=== PATIENT | female | born 1945 | race Caucasian/White ===

== ENCOUNTER 2020-12-12 12:17 | Emergency (ER) | payer MEDICARE, OTHER, SELFPAY ==
--- NOTE | ~2020-12-12 | XR_ITS ---
EXAMINATION: XR CHEST CLINICAL INFORMATION: Cough is no and weakness. COMPARISON: None TECHNIQUE: 2 views of the chest were obtained. FINDINGS: The lungs are well-expanded and clear. The heart size and pulmonary vasculature is normal. There is mild dextro scoliosis dorsal spine. No lytic process. XR/XR chest 2V IMPRESSION: Unremarkable chest exam.
[2020-12-12 12:54] VITALS: BP 122/56; PULSE 66; RESP 18; TEMP 36.6; O2SAT 99; BMI 20.9
--- NOTE | 2020-12-12 15:08 | ECG_ITS ---
Test Reason : WEAKNESS Blood Pressure : / mmHG Vent. Rate : 062 BPM Atrial Rate : 062 BPM P-R Int : 200 ms QRS Dur : 100 ms QT Int : 424 ms P-R-T Axes : 055 -26 054 degrees QTc Int : 430 ms Normal sinus rhythm Incomplete right bundle branch block Borderline ECG When compared with ECG of 22-MAY-2009 11:18, No significant change was found Referred By: Comfort Zamora Electronically Signed By:ADAM AGUIRRE MD
--- NOTE | 2020-12-12 15:24 | ED.WEAKNESS ---
HPI - Weakness General Chief complaint: Weakness Stated complaint: weakness Time Seen by Provider: 12/12/20 14:54 Source: patient and family Mode of arrival: ambulatory Limitations: no limitations History of Present Illness HPI Narrative: 75-year-old female previously healthy here with complaints of generalized weakness for the last few weeks. Had labs done outpatient by her primary care doctor which showed anemia. Patient started on iron supplement 2 weeks ago. Continued symptoms. No black or bloody stools. No abdominal pain, nausea, vomiting. No hematemesis. No hematuria. She does have a mild cold which she describes as coughing congestion with no fevers, chills, chest pain or shortness of breath. She is fully vaccinated with COVID. Last colonoscopy done at [facility] 1 year ago and reportedly normal. Related Data Allergies Allergy/AdvReac Type Severity Reaction Status Date / Time bee pollen [bee stings] Allergy Swelling Verified 12/12/20 12:57 codeine Allergy Unknown Verified 12/12/20 12:57 Sulfa (Sulfonamide Allergy Unknown Verified 12/12/20 12:57 Antibiotics) Review of Systems Review of Systems: Yes all other systems are reviewed and are negative Constitutional: Constitutional: Reports no additional constitutional complaints, Denies body ache(s), Denies chills, Denies fever(s), Denies headache(s) and Reports weakness Eyes: Eyes: Reports no additional eye complaints and Denies change in vision ENT: Reports system reviewed and no additional complaints, except as documented, Denies dizziness, Denies headache(s), Denies nasal congestion, Denies nasal discharge and Denies neck pain Cardiovascular: Cardiovascular: Reports no additional cardiovascular complaints, Denies chest pain, Denies leg edema and Denies dyspnea Respiratory: Respiratory: Reports no additional respiratory complaints, Denies cough and Denies dyspnea Gastrointestinal: Gastrointestinal: Reports no additional gastrointestinal complaints, Denies abdominal pain, Denies diarrhea, Denies nausea and Denies vomiting Genitourinary: Genitourinary: Reports no additional female genitourinary complaints and Denies urinary incontinence Musculoskeletal: Musculoskeletal: Reports no additional musculoskeletal complaints, Denies back pain, Denies arthralgias, Denies joint swelling, Denies neck pain, Denies numbness and Denies tingling Integumentary/Breasts: Skin/Breast: Reports system reviewed and no additional complaints, except as docu and Denies rash Neurologic: Reports system reviewed and no additional complaints, except as documented, Denies Abnormal speech present, Denies dizziness, Denies headache(s), Denies numbness, Denies tingling and Reports weakness PMFSH Past Medical History Attestation statement: The following information was validated with the patient. Source: old records reviewed and nursing notes reviewed Medical History Anemia Social History Social History Advance Directives: No Advance Directives Information Provided: No Physical Exam Vital Signs: Vital Signs: Last Vital Signs Temp 97.8 F 12/12/20 12:54 Pulse 66 12/12/20 12:54 Resp 18 12/12/20 12:54 BP 122/56 L 12/12/20 12:54 Pulse Ox 99 12/12/20 12:54 Body Mass Index 20.9 Const: General: cooperative, healthy appearing, comfortable and no acute distress Orientation/consciousness: patient oriented x3 Limitations: no limitations HENMT: Head: Yes normal to inspection Ears: hearing grossly normal bilaterally General nose exam: Normal external nose present Face and sinus: Yes normal facial exam Mouth: Normal oral and palatal mucosa present Throat: Yes posterior oropharynx normal Eyes: General: appearance normal, both eyes and all related structures Pupils: Equal, round and reactive pupils present Neck: Neck: Yes normal visual inspection Chest: Chest palpation & inspection: normal inspection of the chest Resp: Effort & Inspection: normal respiratory effort Auscultation: clear to auscultation bilaterally Cardio: Rate: regular rate Rhythm: regular rhythm Peripheral pulses: Peripheral pulses 2+ throughout GI: Other: Rectal exam shows brown stool Inspection: Yes normal to inspection Palpation (GI): Soft to palpation and nontender Auscultation: normal bowel sounds Back/Spine/Pelvis: Thoracic/Lumbar Spine: thoracic and lumbar spine normal to inspection Skin: General skin exam: no rashes or lesions noted Neuro: General: patient oriented x3, no focal motor deficits and normal sensation to monofilament Cranial nerves: Yes Equal, round and reactive pupils present Cognition (Neuro): normal cognition Speech: No Abnormal speech present Gait exam (Neuro): Normal gait present Motor exam (neuro): 5/5 motor strength present throughout Extrem: General: Yes normal to inspection Course Course Course Narrative: 75-year-old female here with generalized weakness for several weeks. No specific complaints. Does have a mild cold which she describes as chest congestion and cough. Had outpatient labs several weeks ago which showed anemia per patient. None available for review. She started iron tablets with continued symptoms. Exam is benign. Brown stool on exam. Will send labs, EKG, chest x-ray, COVID screen, UA. 1830-labs show mild microcytic anemia likely iron deficiency. No need for transfusion at this time. All other labs are unremarkable. Chest x-ray shows no acute finding. EKG shows no ischemic changes. UA is negative. Discussed findings with the patient. She was provided with a copy of her labs. She will follow up outpatient with her primary care doctor. Recommended continuing iron supplements. Reviewed worrisome signs and symptoms of when to return to the emergency department. Comfortable discharge home. MDM - Weakness Differential Diagnosis Differential diagnosis: Likely UTI, anemia, hypoglycemia, hypothyroidism, rhabdomyolysis, sepsis and dehydration Medical Records Attestation: I reviewed the patient's medical records. Lab Data Attestation: I reviewed the patient's lab results. Result diagrams: 12/12/20 15:52 12/12/20 15:52 Labs: Lab Results 12/12/20 12/12/20 12/12/20 Range/Units 15:52 15:52 15:52 WBC 7.2 (4.8-10.8) X10*3/uL RBC 4.56 (4.20-5.50) X10*6/uL Hgb 10.7 L (12.0-16.0) g/dl Hct 35.0 L (37-47) % MCV 76.8 L (80-98) fL MCH 23.5 L (27.0-33.0) pg MCHC 30.6 L (31.0-35.0) g/dl RDW 21.1 H (11.0-16.0) % Plt Count 319 (160-400) X10*3/uL MPV 10.1 (9.4-12.3) fL Immature Gran % (Auto) 0.4 (0.0-0.4) % Neut % (Auto) 58.1 (45-73) % Lymph % (Auto) 30.7 (20-40) % [place] % (Auto) 8.0 (2-11) % Eos % (Auto) 2.4 (0-4) % Baso % (Auto) 0.4 (0-2) % Lymph # (Auto) 2.2 (1.2-4.9) X10*3/uL [place] # (Auto) 0.6 (0.1-1.2) X10*3/uL Eos # (Auto) 0.2 (0.0-0.4) X10*3/uL Baso # (Auto) 0.0 (0.0-0.2) X10*3/uL Abs Immat Gran (auto) 0.03 (0.00-0.03) X10*3/uL Absolute Neuts (auto) 4.2 (2.0-8.3) X10*3/uL Absolute Nucleated RBC 0.000 (0.0-0.012) X10*3/uL Nucleated RBC % (auto) 0.0 (0.0-0.2) /100WBC Sodium 142 (135-145) mmol/L Potassium 4.6 (3.3-5.1) mmol/L Chloride 106 (96-108) mmol/L Carbon Dioxide 28 (22-29) mmol/L Anion Gap 13 (12-20) BUN 9 (9-16) mg/dL Creatinine 0.65 (0.5-1.4) mg/dL Estim Creat Clear Calc 54.7 Estimated GFR > 60 Random Glucose 94 (60-115) mg/dL Calcium 9.4 (8.4-10.2) mg/dL Magnesium 2.1 (1.6-2.6) mg/dL Total Bilirubin 0.4 (0.0-1.0) mg/dL Direct Bilirubin 0.2 (0.0-0.5) mg/dL AST 16 (5-31) U/L ALT 12 (0-31) U/L Alkaline Phosphatase 71 (39-117) U/L Total Protein 6.8 (6.5-8.0) g/dL Albumin 4.1 (3.5-5.0) g/dL Urine Color Urine Appearance Urine pH (5.0-8.0) Ur Specific [place] (1.005-1.025) Urine Protein (NEG-TRACE) MG/DL Urine Glucose (UA) (NEG) MG/DL Urine Ketones (NEG) MG/DL Urine Blood (NEG) Urine Nitrite (NEG) Ur Leukocyte Esterase (NEG) Stool Occult Blood NEGATIVE (NEGATIVE) COVID-19 (LUCERO) (Negative) COVID-19 Clin Com 12/12/20 12/12/20 Range/Units 17:21 17:21 WBC (4.8-10.8) X10*3/uL RBC (4.20-5.50) X10*6/uL Hgb (12.0-16.0) g/dl Hct (37-47) % MCV (80-98) fL MCH (27.0-33.0) pg MCHC (31.0-35.0) g/dl RDW (11.0-16.0) % Plt Count (160-400) X10*3/uL MPV (9.4-12.3) fL Immature Gran % (Auto) (0.0-0.4) % Neut % (Auto) (45-73) % Lymph % (Auto) (20-40) % [place] % (Auto) (2-11) % Eos % (Auto) (0-4) % Baso % (Auto) (0-2) % Lymph # (Auto) (1.2-4.9) X10*3/uL [place] # (Auto) (0.1-1.2) X10*3/uL Eos # (Auto) (0.0-0.4) X10*3/uL Baso # (Auto) (0.0-0.2) X10*3/uL Abs Immat Gran (auto) (0.00-0.03) X10*3/uL Absolute Neuts (auto) (2.0-8.3) X10*3/uL Absolute Nucleated RBC (0.0-0.012) X10*3/uL Nucleated RBC % (auto) (0.0-0.2) /100WBC Sodium (135-145) mmol/L Potassium (3.3-5.1) mmol/L Chloride (96-108) mmol/L Carbon Dioxide (22-29) mmol/L Anion Gap (12-20) BUN (9-16) mg/dL Creatinine (0.5-1.4) mg/dL Estim Creat Clear Calc Estimated GFR Random Glucose (60-115) mg/dL Calcium (8.4-10.2) mg/dL Magnesium (1.6-2.6) mg/dL Total Bilirubin (0.0-1.0) mg/dL Direct Bilirubin (0.0-0.5) mg/dL AST (5-31) U/L ALT (0-31) U/L Alkaline Phosphatase (39-117) U/L Total Protein (6.5-8.0) g/dL Albumin (3.5-5.0) g/dL Urine Color YELLOW Urine Appearance HAZY Urine pH 6.0 (5.0-8.0) Ur Specific [place] 1.010 (1.005-1.025) Urine Protein NEG (NEG-TRACE) MG/DL Urine Glucose (UA) NEG (NEG) MG/DL Urine Ketones NEG (NEG) MG/DL Urine Blood NEG (NEG) Urine Nitrite NEG (NEG) Ur Leukocyte Esterase NEG (NEG) Stool Occult Blood (NEGATIVE) COVID-19 (LUCERO) Negative (Negative) COVID-19 Clin Com See Note Imaging Data Chest x-ray: Attestation: I personally reviewed and interpreted this imaging study as follows: Radiologist's impression: [address] [address] XRay Report Signed Patient: Carli Walker MR#: [id number] : 1945 Acct:[id number] Age/Sex: 75 / F ADM Date: 12/12/20 Loc: .ED Attending Dr: Ordering Physician: JESSA WHITE NP Date of Service: 12/12/20 Procedure(s): XR chest 2V Accession Number(s): [id number] cc: JESSA WHITE NP~ EXAMINATION: XR CHEST CLINICAL INFORMATION: Cough is no and weakness. COMPARISON: None TECHNIQUE: 2 views of the chest were obtained. FINDINGS: The lungs are well-expanded and clear. The heart size and pulmonary vasculature is normal. There is mild dextro scoliosis dorsal spine. No lytic process. XR/XR chest 2V IMPRESSION: Unremarkable chest exam. ECG Data Attestation: I personally reviewed and interpreted this ECG as follows: ECG interpretation date: 12/12/20 ECG interpretation time: 15:36 Interpretation: Normal sinus rhythm rate of 62, normal NC, normal QRS, normal QT Discharge Plan Discharge Clinical Impression: Weakness, Anemia, iron deficiency Patient Disposition: Home, Self-Care Instructions: Iron Deficiency Anemia (ED), Weakness (ED) Additional Instructions: Continue iron tablets Follow-up with her primary care doctor Referrals: Nils Mcghee MD [Primary Care Provider] - 2 days Interventions: ED Discharge Assessment Last Done: 12/12/20 18:12 Discharge Date/Time: 12/12/20 18:13
[2020-12-12 16:04] LABS: MANUAL DIFF FLAG NO
[2020-12-12 16:05] LABS: OBS Int Ctl Valid YES; OBS1 NEGATIVE (NEGATIVE)
[2020-12-12 16:08] LABS: Basophils Percent Auto 0.4 % (0-2); Eosinophils Absolute Auto 0.2 X10*3/uL (0.0-0.4); Eosinophils Percent Auto 2.4 % (0-4); Hemoglobin 10.7 g/dl (12.0-16.0); Imm Gran Abs Auto 0.03 X10*3/uL (0.00-0.03); Imm Gran Pct Auto 0.4 % (0.0-0.4); Lymphocytes Absolute Auto 2.2 X10*3/uL (1.2-4.9); Lymphocytes Percent Auto 30.7 % (20-40); Mean Corpuscular HGB Conc 30.6 g/dl (31.0-35.0); Mean Corpuscular Hemoglobin 23.5 pg (27.0-33.0); Mean Corpuscular Volume 76.8 fL (80-98); Mean Platelet Volume 10.1 fL (9.4-12.3); Monocytes Absolute Auto 0.6 X10*3/uL (0.1-1.2); Neutrophils Absolute Auto 4.2 X10*3/uL (2.0-8.3); Neutrophils Percent Auto 58.1 % (45-73); Platelet Count 319 X10*3/uL (160-400); Red Blood Count 4.56 X10*6/uL (4.20-5.50); Red Cell Distribution Width 21.1 % (11.0-16.0); White Blood Count 7.2 X10*3/uL (4.8-10.8)
[2020-12-12 16:26] LABS: Alanine Aminotransferase 12 U/L (0-31); Albumin Level 4.1 g/dL (3.5-5.0); Alkaline Phosphatase 71 U/L (39-117); Anion Gap 13 (12-20); Aspartate Amino Transferase 16 U/L (5-31); Bilirubin Direct 0.2 mg/dL (0.0-0.5); Bilirubin Total 0.4 mg/dL (0.0-1.0); Blood Urea Nitrogen 9 mg/dL (9-16); Calcium 9.4 mg/dL (8.4-10.2); Carbon Dioxide 28 mmol/L (22-29); Chloride 106 mmol/L (96-108); Creatinine Clr Calc Pharmacy 54.7; Estimated Glomerular Filt Rate > 60; Glucose Random 94 mg/dL (60-115); Magnesium 2.1 mg/dL (1.6-2.6); Potassium 4.6 mmol/L (3.3-5.1); Sodium 142 mmol/L (135-145); Total Protein 6.8 g/dL (6.5-8.0)
[2020-12-12 17:43] LABS: Glucose Urine UA NEG (NEG); Leukocyte Esterase Urine NEG (NEG); Nitrite Urine NEG (NEG); Urine Blood NEG (NEG); Urine Ketones NEG (NEG); Urine Protein NEG (NEG-TRACE)
[2020-12-12 17:45] LABS: Appearance Urine HAZY; Color Urine YELLOW
[2020-12-12 17:49] LABS: COVID-19 Test Negative (Negative)
== END 2020-12-12 18:13 | disposition home or self-care (01) ==
PROVIDERS: Nurse Practitioner Family; Emergency Provider Emergency Medicine; PCP Internal Medicine
DX: D50.9 Iron deficiency anemia, unspecified (principal); R53.1 Weakness; Z20.822 Contact with and (suspected) exposure to COVID-19
CPT/HCPCS: 36415; 71046; 80048; 80076; 81003; 82272; 83735; 85025; 87635; 93005; 99283

== ENCOUNTER 2023-08-06 07:55 | Emergency (ER) | payer MEDICARE, OTHER, SELFPAY ==
--- NOTE | ~2023-08-06 | XR_ITS ---
EXAMINATION: XR ABDOMEN KUB CLINICAL INDICATION: Right lower quadrant pain, question constipation. COMPARISON: None available. TECHNIQUE: AP view of the abdomen. FINDINGS: Solid visceral outlines are obscured. Moderate fecal retention. Left hemipelvic, possibly phleboliths, possibly retained colonic contrast in diverticulum. Mildly elevated right hemidiaphragm. Demineralization, degenerative changes and scoliosis. XR/XR KUB IMPRESSION: Moderate fecal retention.
[2023-08-06 08:18] VITALS: BP 160/97; PULSE 70; RESP 18; TEMP 36.5; O2SAT 98; BMI 22.5
[2023-08-06 09:25] LABS: MANUAL DIFF FLAG NO
[2023-08-06 09:35] LABS: Basophils Percent Auto 0.7 % (0-2); Eosinophils Absolute Auto 0.1 X10*3/uL (0.0-0.4); Hematocrit 42.6 % (37.0-47.0); Hemoglobin 13.9 g/dl (12.0-16.0); Imm Gran Abs Auto 0.03 X10*3/uL (0.00-0.03); Imm Gran Pct Auto 0.5 % (0.0-0.4); Lymphocytes Absolute Auto 1.2 X10*3/uL (1.2-4.9); Lymphocytes Percent Auto 20.6 % (20-40); Mean Corpuscular HGB Conc 32.6 g/dl (31.0-35.0); Mean Corpuscular Hemoglobin 31.1 pg (27.0-33.0); Mean Corpuscular Volume 95.3 fL (80.0-98.0); Mean Platelet Volume 9.3 fL (9.4-12.3); Monocytes Absolute Auto 0.5 X10*3/uL (0.1-1.2); Monocytes Percent Auto 7.6 % (2-11); Neutrophils Absolute Auto 4.1 x10*3/uL (2.0-8.3); Neutrophils Percent Auto 68.6 % (45-73); Platelet Count 228 X10*3/uL (160-400); Red Blood Count 4.47 X10*6/uL (4.20-5.50); Red Cell Distribution Width 12.6 % (11.0-16.0)
[2023-08-06 09:39] LABS: Appearance Urine Clear; Color Urine Yellow; Glucose Urine UA Negative (Negative); Leukocyte Esterase Urine Negative (Negative); Nitrite Urine Negative (Negative); PH 8.5 (5.0-9.0); Specific Gravity - Urine <= 1.005 (1.005-1.025); Urine Blood Negative (Negative); Urine Ketones Negative (Negative); Urine Protein Negative (Neg-Trace)
--- NOTE | 2023-08-06 09:42 | ED.GENADULT ---
HPI - General Adult General Chief complaint: Abdominal Pain Stated complaint: Yuliana Bell Pain Time Seen by Provider: 08/06/23 09:30 History of Present Illness HPI narrative: The patient is an 78-year-old woman who has been having problems with pain in her right groin for the last 7 weeks. She has been been seen at her regular doctor's office and there has been a presumptive diagnosis of possible constipation. The patient has increased laxatives at home. The patient says she has a history of problems with constipation. She also has a history of an appendectomy. She also has a history of a right inguinal hernia repair. The patient says that she notices the pain most in the mornings and that it gets better throughout the day in his usually considerably better by the evening. She has seen her PCP about this pain. Her PCP ordered a CT of her abdomen and pelvis that was done at [facility] 1-2 weeks ago. According to the patient the CT showed ?a blockage and she was encouraged to increase her bowel regimen. She had a bowel movement yesterday. She also saw her primary care doctor yesterday. Despite these events the patient's pain was worse this morning and she came to the emergency room. No fever, sweats, chills. No nausea or vomiting. Related Data Allergies Allergy/AdvReac Type Severity Reaction Status Date / Time bee pollen [bee stings] Allergy Swelling Verified 12/12/20 12:57 codeine Allergy Unknown Verified 12/12/20 12:57 Sulfa (Sulfonamide Allergy Unknown Verified 12/12/20 12:57 Antibiotics) tramadol Allergy Nausea Verified 08/06/23 08:21 Review of Systems Review of Systems: Yes all other systems are reviewed and are negative [facility] Past Medical History Medical History Anemia Social History Social History Advance Directives: Yes Advance Directives Information Provided: Yes Advance Directives on File: No Physical Exam ED Vital Signs: Vital Signs - 24 hr 08/06/23 08:18 08/06/23 11:50 08/06/23 11:53 Temperature 97.7 F 97.5 F 97.5 F Pulse Rate 70 66 64 Respiratory Rate 18 18 16 Blood Pressure 160/97 H 133/53 L 133/53 L Pulse Oximetry 98 97 96 Oxygen Delivery Method Room Air Room Air Room Air BMI result Body Mass Index 22.5 Const Other: The patient is a healthy-looking 6-year-old who was awake and alert and who does not seem acutely ill. HENMT Other: The appearance of the head and face are unremarkable. Mucous membranes moist. Eyes Other: Pupils are round and equal. No scleral icterus. Neck Neck: Yes no JVD Resp Effort & Inspection: normal respiratory effort Auscultation: clear to auscultation bilaterally Cardio Rate: regular rate Rhythm: regular rhythm Heart sounds: S1 normal heart sound present and S2 normal heart sound present GI Other: The abdomen is flat and soft. There is some mild right lower quadrant tenderness. There is no palpable hernia in the right inguinal region. Skin Other: Skin is dry and unremarkable Neuro Other: The patient is awake, alert, pleasant, nontoxic. Cranial nerves are grossly intact. She moves all extremities normally and easily. Extrem Other: No deformities to the extremities. I can put the right hip through an excellent range of motion without apparent discomfort. Medical Decision Making Medical Decision Making [facility] Narrative: The patient is an 78-year-old woman who has been experiencing pain in her right groin intermittently for the last 7 weeks. She had a CT scan at [facility] 1 month ago because of this pain. The CT scan was fairly unremarkable. I was able to obtain records from [facility]. The impression of the CT reads ?sigmoid colonic diverticulosis and mild fecal retention. No CT evidence of acute diverticulitis or acute intra-abdominal process. Moderate sliding type hiatal hernia. Clinically the patient's description of her pain syndrome does not sound highly suggestive of an intra-abdominal source of pain. I think it is unlikely that this pain syndrome represents a problem with constipation. Seems more likely the pain would be musculoskeletal although it was not entirely reproducible with manipulation of the right hip. The patient was observed in the emergency department. Her pain resolved while in the emergency department. I think she may be discharged follow up with the regular doctor to discuss this further. Lab Data 08/06/23 09:18 08/06/23 09:18 Labs: Lab Results 08/06/23 08/06/23 Range/Units 09:18 09:34 WBC 6.0 (4.8-10.8) X10*3/uL RBC 4.47 (4.20-5.50) X10*6/uL Hgb 13.9 (12.0-16.0) g/dl Hct 42.6 (37.0-47.0) % MCV 95.3 (80.0-98.0) fL MCH 31.1 (27.0-33.0) pg MCHC 32.6 (31.0-35.0) g/dl RDW 12.6 (11.0-16.0) % Plt Count 228 (160-400) X10*3/uL MPV 9.3 L (9.4-12.3) fL Immature Gran % (Auto) 0.5 H (0.0-0.4) % Neut % (Auto) 68.6 (45-73) % Lymph % (Auto) 20.6 (20-40) % [place] % (Auto) 7.6 (2-11) % Eos % (Auto) 2.0 (0-4) % Baso % (Auto) 0.7 (0-2) % Lymph # (Auto) 1.2 (1.2-4.9) X10*3/uL [place] # (Auto) 0.5 (0.1-1.2) X10*3/uL Eos # (Auto) 0.1 (0.0-0.4) X10*3/uL Baso # (Auto) 0.0 (0.0-0.2) X10*3/uL Abs Immat Gran (auto) 0.03 (0.00-0.03) X10*3/uL Absolute Neuts (auto) 4.1 (2.0-8.3) x10*3/uL Absolute Nucleated RBC 0.000 (0.0-0.012) X10*3/uL Nucleated RBC % (auto) 0.0 (0.0-0.2) /100WBC Sodium 142 (135-145) mmol/L Potassium 4.1 (3.3-5.1) mmol/L Chloride 105 (96-108) mmol/L Carbon Dioxide 31 H (22-29) mmol/L Anion Gap 10 L (12-20) BUN 9 (9-16) mg/dL Creatinine 0.63 (0.5-1.4) mg/dL Estim Creat Clear Calc 51.1 Estimated GFR > 60 Random Glucose 97 (60-115) mg/dL Calcium 9.0 (8.4-10.2) mg/dL Total Bilirubin 0.4 (0.0-1.0) mg/dL AST 19 (5-31) U/L ALT 13 (0-31) U/L Alkaline Phosphatase 61 (39-117) U/L C-Reactive Protein 0.21 (< or = 0.50) mg/dL Total Protein 6.8 (6.5-8.0) g/dL Albumin 4.0 (3.5-5.0) g/dL Urine Color Yellow Urine Appearance Clear Urine pH 8.5 (5.0-9.0) Ur Specific [place] <= 1.005 (1.005-1.025) Urine Protein Negative (Neg-Trace) mg/dL Urine Glucose (UA) Negative (Negative) mg/dL Urine Ketones Negative (Negative) mg/dL Urine Blood Negative (Negative) Urine Nitrite Negative (Negative) Ur Leukocyte Esterase Negative (Negative) Discharge Plan Discharge Clinical Impression: Right groin pain Patient Disposition: Home, Self-Care Additional Instructions: I am not convinced your pain is related to constipation. I think it is more likely related to a musculoskeletal problem. You may take acetaminophen (Tylenol )as needed for pain. Please follow-up soon with your regular doctor to discuss this further. Return to the emergency room if worse. Referrals: Nils Mcghee MD [Primary Care Provider] - (Right groin pain) Interventions: ED Discharge Assessment Last Done: 08/06/23 11:53 Discharge Date/Time: 08/06/23 11:54 Print Language: [place] Irish
[2023-08-06 09:43] LABS: Alanine Aminotransferase 13 U/L (0-31); Alkaline Phosphatase 61 U/L (39-117); Anion Gap 10 (12-20); Aspartate Amino Transferase 19 U/L (5-31); Bilirubin Total 0.4 mg/dL (0.0-1.0); Blood Urea Nitrogen 9 mg/dL (9-16); Carbon Dioxide 31 mmol/L (22-29); Chloride 105 mmol/L (96-108); Creatinine Clr Calc Pharmacy 51.1; Estimated Glomerular Filt Rate > 60; Glucose Random 97 mg/dL (60-115); Potassium 4.1 mmol/L (3.3-5.1); Sodium 142 mmol/L (135-145); Total Protein 6.8 g/dL (6.5-8.0)
[2023-08-06 10:06] LABS: C Reactive Protein 0.21 mg/dL (< or = 0.50)
[2023-08-06 11:50] VITALS: BP 133/53; PULSE 66; RESP 18; TEMP 36.4; O2SAT 97
[2023-08-06 11:53] VITALS: BP 133/53; PULSE 64; RESP 16; TEMP 36.4; O2SAT 96
== END 2023-08-06 11:54 | disposition home or self-care (01) ==
PROVIDERS: Emergency Provider Emergency Medicine; PCP Internal Medicine
DX: R10.31 Right lower quadrant pain (principal); Z88.5 Allergy status to narcotic agent
CPT/HCPCS: 36415; 74018; 80053; 81003; 85025; 86140; 99283

== ENCOUNTER 2025-02-14 13:34 | Outpatient (AMB) | payer MEDICARE, OTHER, SELFPAY ==
--- NOTE | 2025-02-14 13:41 | A.OFFVIS_ITS ---
Intake Visit Reasons: flank pain Intake Note: New Patient is present for flank pain Urology Rx: none Blood Thinners:none Imaging completed: CT done 11/27/24 Optical Effects Layout Person Required: No Accompanied by: Spouse Allergies bee pollen (bee stings) Allergy (Verified 02/14/25 13:42) Swelling codeine Allergy (Verified 02/14/25 13:42) Unknown Sulfa (Sulfonamide Antibiotics) Allergy (Verified 02/14/25 13:42) Unknown tramadol Allergy (Verified 02/14/25 13:42) Nausea HPI Comments Details: Carli is a pleasant female. She is a patient of Dr. Jewell. She is seen for the following conditions, - nephrolithiasis Question of nephrolithiasis Has been having back discomfort On exam has musculoskeletal pain Prior KUB with fecal loading Discussed increasing fluid and dietary fiber [facility] Medical History (Updated 05/01/25 @ 20:56 by Hao Ramsey MD) Diverticulitis Anemia Review of Systems Const Denies chills and Denies fever(s) Card Reports no additional complaints and Denies syncope Resp Denies cough GI Denies abdominal pain and Denies heartburn Reports as per HPI and Denies change in libido Neuro Denies syncope Psych Denies change in libido Endo Denies change in libido Physical Exam Const General: cooperative, healthy appearing, comfortable and no acute distress Orientation/consciousness: patient oriented x3 HEENT Face and sinus: Yes normal facial exam Mouth: moist mucous membranes Neck Neck: Yes normal visual inspection, Yes full ROM and Yes trachea midline Chest Chest palpation & inspection: normal inspection of the chest Resp Effort & Inspection: normal respiratory effort, able to speak in complete sentences and no respiratory distress GI Inspection: Yes normal to inspection Back/Spine/Pelvis Cervical Spine: normal cervical lordosis Thoracic/Lumbar Spine: thoracic and lumbar spine normal to inspection Skin General skin exam: no rashes or lesions noted Neuro General: patient oriented x3, gait normal, tone normal and moves all extremities Extrem General: Yes normal to inspection and Yes capillary refill normal Results AMB Urinalysis, Automated UA Leukoctes 0 Jori/uL Last Edit by CORKY Rasmussen on 02/14/25 14:15 UA Nitrite Negative Last Edit by CORKY Rasmussen on 02/14/25 14:15 UA Urobilinogen 0.2 mg/dL Last Edit by CORKY Rasmussen on 02/14/25 14:15 UA Protein 15 mg/dL Last Edit by Mendy Colon, CCMA on 02/14/25 14:15 UA pH 6.0 Last Edit by Mendy Colon, CCMA on 02/14/25 14:15 UA Blood 10 Nathaniel/uL Last Edit by Mendy Colon, CCMA on 02/14/25 14:15 UA Specific [place] 1.020 Last Edit by Mendy Colon, CCMA on 02/14/25 14:1 5 UA Ketone Negative Last Edit by Mendy Colon, CCMA on 02/14/25 14:15 UA Bilirubin 0 mg/dL Last Edit by Mendy Colon, CCMA on 02/14/25 14:15 UA Glucose 0 mg/dL Last Edit by Mendy Colon, CCMA on 02/14/25 14:15 Results Reviewed Results Reviewed: Laboratory Last Values Urine pH (Auto) 6.0 02/14/25 14:15 Specific [place] (Auto) 1.020 02/14/25 14:15 Urine Protein (Auto) 15 mg/dL 02/14/25 14:15 Glucose (UA)(Auto) 0 mg/dL 02/14/25 14:15 Urine Ketones (Auto) Negative 02/14/25 14:15 Urine Blood (Auto) 10 Nathaniel/uL 02/14/25 14:15 Urine Nitrite (Auto) Negative 02/14/25 14:15 Urine Bilirubin (Auto) 0 mg/dL 02/14/25 14:15 Urine Urobilinogen (Auto) 0.2 mg/dL 02/14/25 14:15 Leukocyte Esterase (Auto) 0 Jori/uL 02/14/25 14:15 Assessment & Plan Assessment & Plan (1) Flank pain: Code(s): R10.A0 - Flank pain, unspecified side Category: Medical Plan Flank pain is secondary to musculoskeletal. Not renal related. Patient Instructions: This note is constructed using voice recognition software. While every effort has been made to ensure accuracy client solutions manager errors may have been included. Imaging studies, laboratory and physical exam results were discussed and reviewed in detail. No major barriers to patient understanding were identified. An opportunity to ask questions regarding the treatment plan was provided. All questions were answered. The patient expressed understanding and agreement with the above treatment plan. The patient is aware they should contact our office by phone for worsening of their current condition or the appearance of new urologic symptoms. Compliance is encouraged with any medications and followup testing that is ordered. It is a privilege to participate in the urologic care of your patient. If you have any questions or concerns regarding treatment for the above conditions, or other urologic issues, please do not hesitate to contact me. The office telephone contact is [phone]. Sincerely, Dr Hao Ramsey MD, [facility] - Urology Compassionate Specialist Care for the Genitourinary System Coding Level of Care Code New Pt Level 3 (42978) Diagnoses Flank pain R10.A0
--- OUTSIDE RECORDS SUMMARY | 2025-02-14 17:22 | XMS_ITS | Data Portability ---
Author Organization [facility], PAIN OFFICE Address [address] [facility] [address] [place] [address] Care Team Providers Care Catering And Events Manager Name Role Phone KATHERIN DEMI Primary Care Provider [phone] Assessment Encounter Date Assessment Date Assessment LastModified by Organization Details LastModified Time 04/04/2015 04/04/2015 Carli Walker is a 69 year old woman with complaints of low back pain . On exam she has tenderness in the region of right L3-4 and L4-5 facet regions. MRI Lumbar spine shows multilevel facet hypertrophy with moderate hypertrophy at L3-4 level. Mild retrolisthesis at L1-2 and L2-3 levels is noted. Small focal left disc protrsuion at L5-S1 level . Multiple levels of mild lateral recess narrowing but no high grade central stenosis. Trial of Lumbar facet joint steroid injections at right L3-4 and L4-5 levels under fluoroscopic guidance was recommended. The risks and benefits of the procedure were discussed in detail. She wishes to proceed. An appointment has been booked for the same. She needs a medical driver on the day of the procedure. [email or web address] Not available 04/04/2015 15:47:31 04/08/2015 04/08/2015 Carli Walker is a 69 year old woman with complaints of low back pain . On exam she has tenderness in the region of right L3-4 and L4-5 facet regions. MRI Lumbar spine shows multilevel facet hypertrophy with moderate hypertrophy at L3-4 level. Mild retrolisthesis at L1-2 and L2-3 levels is noted. Small focal left disc protrsuion at L5-S1 level . Multiple levels of mild lateral recess narrowing but no high grade central stenosis. She is here for a trial of Right lumbar facet joint steroid injections at L3-4 and L4-5 levels under fluoroscopic guidance . The risks and benefits of the procedure were discussed in detail. She wishes to proceed. She will follow up in four weeks. [email or web address] Not available 04/08/2015 14:51:59 05/07/2015 05/07/2015 Carli Walker is a 69 year old woman with complaints of low back pain . She is here for a follow up after atrial of Right lumbar facet joint steroid injections at L3-4 and L4-5 levels under fluoroscopic guidance . She reports 75-80% pain relief which is ongoing. She has occasional pain onthe left side of her lumbar region. On exam she has mild tenderness in the region ofleft L3-4 and L4-5 facet regions. MRI Lumbar spine shows multilevel facet hypertrophy with moderate hypertrophy at L3-4 level. Mild retrolisthesis at L1-2 and L2-3 levels is noted. Small focal left disc protrsuion at L5-S1 level . Multiple levels of mild lateral recess narrowing but no high grade central stenosis. I have encouraged her to resume aquatic exercises at her local gym. If left sided low back pain increases in intensity , she can follow up for left facet joint steroid injection under fluoroscopic guidance. [email or web address] Not available 05/08/2015 15:55:00 Plan of Treatment Reminders Order Date Submit Date Provider Last Modified By Organization Details Last Modified Time Details Appointments None record ed. Lab None record ed. Referral None record ed. Procedures None record ed. Surgeries None record ed. Imaging None record ed. Medication Orders None record ed. Patient TargetsNo targets recorded. Patient Instructions Encounter Date Encounter Id Patient Instructions Last Modified By Organization Details Last Modified Time 04/04/2015 [id number] She was advised against bed rest lasting longer than four days and to continue activities as tolerated. [email or web address] Not available 04/04/2015 15:47:32 04/08/2015 [id number] She was advised against bed rest lasting longer than four days and to continue activities as tolerated. [email or web address] Not available 04/08/2015 14:49:01 05/07/2015 [id number] She was advised against bed rest lasting longer than four days and to continue activities as tolerated. [email or web address] Not available 05/07/2015 14:38:36 Reason for Referral None Reported. Problems Name Problem SNOMED Code Status Onset Date Resolution Date Notes Provider Name and Address Organization Details Recorded Time Displacement of lumbar intervertebral disc without myelopathy 20020206 Active Pee lucas MD [address] , [address], [place], [address], [place] [facility] 6 15:55:00 Lumbosacral spondylosis without myelopathy 79456005 Active Pee lucas MD [address] , [address], [place], [address], [place] [facility] 6 15:55:00 Muscle pain 50665863 Active Pee lucas MD [address] , [address], [facility] [place], [address], [place] [facility] 6 15:55:00 Problem Notes None recorded. Procedures Surgical History Date Name Laterality Status Provider Name and Address Organization Details Recorded Time 04/08/20 15 Fluoroscopic Guided Lumbar Facet Steroid Injections of levels completed Pee Celaya MD [address] , [address], [place], [address], [place] [facility] 04/08/2015 14:51:59 Arthroscopic Surgery completed Stephanie Cadena [place] [facility] 04/04/2015 13:50:58 Appendectomy completed Stephanie Cadena [place] [facility] 04/04/2015 13:50:58 Other completed Stephanie Cadena [place] [facility] 04/04/2015 13:50:58 Caesarean Section completed Stephanie Cadena [place] [facility] 04/04/2015 13:50:58 Imaging Results None recorded. Procedure Notes None recorded. Medical Equipment None Reported. Allergies Allergen ID Allergen Name Allergen Category Reaction Reaction Severity Criticality Documentation Date Start Date Code Code System Note Provider Name and Address Organization Details Recorded Time 51167 codeine medicatio n Not available Not available Not available 04/04/2015 2670 RxNorm Stephanie tom [place] [facility] 5 13:50:58 77148 Substance with sulfonami de structure and antibacte rial mechanism of action (substanc e) medicatio n nausea Not available Not available 04/04/2015 10854 8003 SNOMED Stephanie tom [place] [facility] 5 13:50:58 Medications Name Sig Start Date Stop Date Status Note LastModified by Organization Details LastModified Time prednisone 10 mg tabs active Not Available Not Available N ot Available levofloxacin 500 mg tabs active Not Available Not Available Not Available benzonatate 100 mg caps active Not Available Not Available Not Available cyclobenzapr ine hcl 5 mg tabs active Not Available Not Available Not Available azelastine hcl 0.1 % soln active Not Available Not Available Not Available doxycycline hyclate 100 mg caps active Not Available Not Available Not Available prednisone 10 mg tablet TAKE 4 TABLETS BY MOUTH ONCE DAILY FOR 2 DAYS, 3 TABS FOR 2 DAYS,... (REFER TO PRESCRIPTIO N NOTES). active Not Available Not Available No t Available doxycycline hyclate 100 mg capsule take 1 capsule by mouth twice a day for 10 days active Not Available Not Available No t Available aspirin 81 mg tablet,delay ed release Take 1 tablet every day by oral route. active Not Available Not Available No t Available benzonatate 100 mg capsule TAKE 1 CAP BY MOUTH 3 TIMES DAILY active Not Available Not Available Not Available azelastine 137 mcg (0.1 %) nasal spray INSTILL 2 SPRAYS INTO NOSTRIL(S) TWICE DAILY active Not Available Not Available Not Available levofloxacin 500 mg tablet TAKE 1 TABLET BY MOUTH EVERY 24 HOURS active Not Available Not Available No t Available Vitamin D3 25 mcg (1,000 unit) capsule Take by oral route. active Not Available Not Available Not Available cyclobenzapr ine 5 mg tablet take 1 tablet by mouth at bedtime active Not Available Not Available No t Available Fish Oil 2 tabs 1,000 daily active Not Available Not Available Not Available Vitamin B12 active Not Available Not A vailable Not Available Vitals Date Recorded Heart rate Oxygen saturation Oxygen saturation in Arterial blood by Pulse oximetry Systolic And Diastolic Provider Name and Address Organization Details Last Updated DateTime 05/07/2015 76 /min 98 % 98 % 113/55 mm[Hg] Stephanie Cadena [facility] 6 11:46:43 Date Recorded Body weight Oxygen saturation Oxygen saturation in Arterial blood by Pulse oximetry Body height Body mass index (BMI) Heart rate Systolic And Diastolic Provider Name and Address Organization Details Last Updated DateTime 5 92789.0 844 g 100 % 100 % 156.21 cm 22.3 kg/m2 66 /min 142/62 mm[Hg] Stephanie Cadena [facility] Pain Management 5 13:46:17 Date Recorded Oxygen saturation Oxygen saturation in Arterial blood by Pulse oximetry Heart rate Systolic And Diastolic Provider Name and Address Organization Details Last Updated DateTime 04/08/2015 98 % 98 % 67 /min 110/66 mm[Hg] Stephanie Carrascozier [facility] Pain Management 5 11:16:43 Social History Question Answer Notes LastModified by Organizat ion Details LastModified Time Tobacco Smoking Status Never [facility]oker Not [facility] 02/16/2020 03:16:12 Which Illicit Or Recreational Drugs Have You Used? No [id number] Information not available 02/16/2020 [email or web address] Information no t available 04/04/2015 Live Alone Or With Others? [email or web address] Information not available 04/04/2015 Marital Status [facility] Informatio n not available 04/04/2015 Sex: Unknown Functional Status Question Answer Note LastModified by Organizat ion Details LastModified Time What is your level of alcohol consumption? Occasional [id number] Information not available 02/16/2020 Are you currently employed? No [id number] Information not available 02/16/2020 Mental Status None recorded. Family History Nothing Reported. Medical History Condition Response GERD/Reflux Y Gynecological HistoryNo gynecological history recorded. Obstetrics History GPAL:G 0 P 0 0 0 0 Past Encounters Encounter ID Performer Location Encounter Start Date Encounter Closed Date Diagnosis/Indication Diagnosis SNOMED-CT Code Diagnosis ICD10 Code Diagnosis IMO Codes Diagnosis Note [id number] Pee Celaya MD PAIN OFFICE [address] [place] [address] 04/04/2015 13:17:07 04/04/2015 15:47:55 Lumbosacral spondylosis without myelopathy 64375719 M47.817 Displaceme nt of lumbar intervertebral disc without myelopathy 06355760 M51.26 Muscle pain 07213007 M79 .1 [id number] Pee Celaya MD PAIN OFFICE [address] [place] [address] 04/08/2015 10:53:19 04/08/2015 14:53:51 Lumbosacral spondylosis without myelopathy 46263268 M47.817 Muscle pain 71898641 M79 .1 Displaceme nt of lumbar intervertebral disc without myelopathy 05378423 M51.26 [id number] Pee Celaya MD PAIN OFFICE [address] [place] [address] 05/07/2015 11:14:53 05/08/2015 10:10:08 Lumbosacral spondylosis without myelopathy 59267015 M47.817 Muscle pain 31634723 M79 .1 Displaceme nt of lumbar intervertebral disc without myelopathy 74448830 M51.26 Health Concerns Section Related Observation LastModified by Organization Detai ls LastModified Time None Recorded Concern Status LastModified by Organization Details LastModified Time None Recorded Advance Directives Directive None Recorded Payers Insurance Date Sequence Insurance Name Policy Number Policy Sow Covered Member ID Sow Member ID Guarantor Name 04/05/2015 1 [facility] (HMO) [id number] Carli Walker [id number] Carli Walker 04/05/2015 1 [facility] - MEDICARE ADVANTAGE PLAN (MEDICARE REPLACEMENT HMO) [id number] Carli Walker [id number] Carli Walker 05/04/2015 1 [place] [employer] [employer] Carli Walker [id number] Carli Walker 05/04/2015 2 [facility] - PLAN 1 (MEDICARE SUPPLEMENT) [id number] Carli Walker [id number] Carli Walker Notes Date Note Type Note Provider Name and Address Organization Details Recorded Time 04/04/2015 text/html Pain Management L-spineReported by PatientHPIFor quality, patient reportsaching(she describes the pain as an aching and pulling pain in her low back. she has no radiating pain in her lower extremities.). For severity, patient reportsworseningbut reportscurrent pain level 3/10andworst pain 8/10. For duration, patient reportsconstant. For onset/timing, patient reportssudden. For context, patient reportsfall. For alleviating factors, patient reportsheatandrest. For aggravating factors, patient reportslifting,standing , andwalking. For associated symptoms, patient reportsno weakness,no numbness,no bladder compromise, andno bowel compromise. For radiation, patient reportsnone. For work related, patient reportsno. 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 For prior imaging, patient reportsmri(mri lumbar spine shows multilevel facet hypertrophy with moderate hypertrophy at l3-4 level. mild retrolisthesis at l1-2 and l2-3 levels is noted. small focal left disc protrsuion at l5-s1 level . multiple levels of mild lateral recess narrowing but no high grade central stenosis). For prior emg, patient reportsnone. For previous surgery, patient reportsnone. For previous injections, patient reportsnone. 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 For previous respiratory care specialist, patient reportsnone. For location, (carli walker is a 69 year old woman with complaints of low back pain. the pain started after a fall in her attic. she states she tripped over things in her attic.). Pee Celaya MD [address] [facility] , [facility] [address], [place], [address], [facility] Pain Management 04/08/2015 08:50:28 04/08/2015 text/html She is here for a right facet joint steroid injection under fluoroscopic guidance Pee Celaya MD [address] [facility] , [address], [place], [address], [facility] 04/10/2015 16:06:38 05/07/2015 text/html She is here for a follow up after a right facet joint steroid injection under fluoroscopic guidance. She reports 75- 80 % pain benefit which is ongoing. She states she has stiffness in the evening and occasionally pain on the left side of her low back. She has no history of pain , numbness or weakness in her lower extremities. She has no history of bladder or bowel incontinence. Pee Celaya MD [address] [facility] , [address], [place], [address], [facility] Pain Management 05/08/2015 15:55:10 OBGyn Episode No OBEpisode recorded.
== END 2025-02-14 15:18 | disposition home or self-care (01) ==
LOC: HO.HUSH 13:35
PROVIDERS: PCP Internal Medicine; Visit Provider Urology
DX: R10.A0 Flank pain, unspecified side (principal)
CPT/HCPCS: 99203

== ENCOUNTER → 2025-02-14 13:34 | Outpatient (BNVA) | payer MEDICARE, OTHER, SELFPAY | PROVIDERS: PCP Internal Medicine; Visit Provider Urology | DX: Z71.2 Person consulting for explanation of examination or test findings (principal); R10.A0 Flank pain, unspecified side | CPT/HCPCS: 99202 ==